=== PATIENT | female | born 1985 | race Caucasian/White ===

== ENCOUNTER 2019-06-06 14:07 | Emergency (ER) | payer MEDICAID ==
[~2019-06-06] VITALS: Ht 167.6 cm; Wt 90.0 kg
[2019-06-06] MEDS ORDERED: WITC1MED RC (14:27)
--- NOTE | 2019-06-06 14:27 | NUR ---
BP AND PULSE OX IN PLACE. ERP IN TO ASSESS. VS UPDATED.
[2019-06-06 14:28] VITALS: BP 123/68
== END 2019-06-06 15:09 | disposition home or self-care (01) ==
LOC: ED 14:50
DX: K64.5 Perianal venous thrombosis (principal)
CPT/HCPCS: 99282

== ENCOUNTER 2020-05-02 16:30 | Emergency (ER) | payer MEDICAID ==
[~2020-05-02 16:30] MED LIST: WITC1MED RC
[2020-05-02 16:39] VITALS: BP 144/57
--- NOTE | 2020-05-02 16:57 | NUR ---
admission liaison:Pt to room from lobby.
== END 2020-05-02 18:15 | disposition home or self-care (01) ==
LOC: ED 17:16
DX: S90.31XA Contusion of right foot, initial encounter (principal); X58.XXXA Exposure to other specified factors, initial encounter; Y93.89 Activity, other specified; Y92.098 Other place in other non-institutional residence as the place of occurrence of the external cause; Y99.8 Other external cause status
CPT/HCPCS: 99283

== ENCOUNTER 2021-01-12 03:15 | Emergency (ER) | payer MEDICAID ==
[~2021-01-12] VITALS: Ht 170.2 cm; Wt 95.3 kg
--- NOTE | 2021-01-12 03:33 | NUR ---
PT STATES SHE DRANK SOME FRUIT JUICE & IS ALLERGIC TO STONE FRUITS/APPLES. PT STATES TONGUE FEELS SWOLLEN, SPEAKING IN FULL SENTANCES. 97%RA. RR EVEN NON LABORED. PT STATES SHE TOOK 50MG NON DROWSY BENADRYL ~1HR EVS MANAGER. PT C/O INCREASING EDEMA TO R BREAST. CHANGED INTO GOWN. WILL CTM.
--- NOTE | 2021-01-12 04:47 | NUR ---
AMBULATORY TO RESTROOM C STEADY GAIT. U/S COMPLETED.
[2021-01-12 05:09] LABS: BASOPHILS % (AUTO) 1 % (0-1); EOSINOPHILS % (AUTO) 0 % (1-7); LYMPHOCYTES % (AUTO) 17 % (22-44); MEAN CORPUSCULAR HEMOGLOBIN 31.3 pg (27.0-34.8); MEAN CORPUSCULAR HGB CONC 33.6 g/dL (32.4-35.8); MEAN PLATELET VOLUME 7.3 fL (7.4-10.4); MONOCYTES % (AUTO) 7 % (2-9); NEUTROPHILS % (AUTO) 75 % (42-75); PLATELET COUNT 309 x10^3/uL (130-400); RED BLOOD COUNT 4.54 x10^6/uL (3.82-5.3)
[2021-01-12 05:17] LABS: CHLORIDE 110 mmol/L (98-107)
[2021-01-12 05:35] LABS: ALANINE AMINOTRANSFERASE 39 U/L (12-78); ALBUMIN 3.8 g/dL (3.4-5.0); ALKALINE PHOSPHATASE 72 U/L (45-117); ANION GAP 11 mmol/L (5-15); BILIRUBIN,TOTAL 0.5 mg/dL (0.2-1.0); CALCIUM 8.7 mg/dL (8.5-10.1); CREATININE 0.66 mg/dL (0.55-1.02); TOTAL PROTEIN 7.6 g/dL (6.4-8.2); TROPONIN I < 0.015 ng/mL (0.000-0.045)
--- NOTE | 2021-01-12 06:13 | NUR ---
PT AWARE OF PENDING U/S REPORT. STATES SWELLINGIN R ARM HAS DECREASED. WILL CTM.
[2021-01-12 08:29] VITALS: BP 107/59
--- NOTE | 2021-01-12 08:30 | NUR ---
Patient given discharge instructions and they have confirmed that they understand the instructions. Patient ambulatory with steady gait. NAD, all questions answered appropriately, denies additional needs at this time. No personal belongings left in room after discharge.
== END 2021-01-12 08:31 | disposition home or self-care (01) ==
LOC: ED 06:57
DX: M79.621 Pain in right upper arm (principal); M79.631 Pain in right forearm; M79.641 Pain in right hand; R06.02 Shortness of breath; R94.31 Abnormal electrocardiogram [ECG] [EKG]; Z88.1 Allergy status to other antibiotic agents
CPT/HCPCS: 36415; 80053; 84484; 85025; 93005; 99285